=== PATIENT | female | born 1980 | race Caucasian/White ===

== ENCOUNTER 2021-04-07 12:13 | Inpatient (IN) | payer MEDICAID ==
[~2021-04-07] VITALS: Ht 157.5 cm; Wt 66.2 kg
[2021-04-07] MEDS ORDERED: MORPHINE SULFATE INJ 4 MG/ML DISP.SYRIN ONE (12:29)
[2021-04-07] MEDS ORDERED: ONDANSETRON HCL/PF 4 MG/2 ML VIAL ONE ×2 (12:29→13:11)
[2021-04-07] MEDS ORDERED: ONDANSETRON HCL/PF 4 MG/2 ML VIAL IVP ONE (12:30)
[2021-04-07] MEDS ORDERED: IV NS 0.9% 1,000 ML BAG IV ONE ×2 (12:30→13:30)
[2021-04-07] MEDS ORDERED: MORPHINE SULFATE INJ 2 MG/ML DISP.SYRIN IV ONE ×2 (12:30→14:00)
--- NOTE | 2021-04-07 12:48 | NUR ---
BIBS FROM HOME TO ER BED 6. AAOX4. NOT IN RESP DISTRESS. AMBULATORY. CAME IN FOR HEADACHE W/ NAUSEA AND VOMMITING. PER PT STARTED YESTERDAY HEADACHE PROGRESSIVELY GETTING WORSE, TOOK IBUPROPHEN 800 W/O RELIEF AND STARTED TO HAVE NAUSEA. NO NOTED NEURO DEFICIT. MD WAS AT THE BEDSIDE FOR EVAL. ORDERS RECEIVED, NOTED AND CARRIED OUT. IV LINE ESTABLISHED ON THE L WRIST WITH 20G, BLOOD BEING DRAWN BY PHLEB. EKG DONE AT BEDSIDE. PT ON MONITOR AND MEDICATED ORDERED.
[2021-04-07 12:55] LABS: EOSINOPHILS % (AUTO) 0.1 % (0.0-6.0); MEAN CORPUSCULAR HGB CONC 29 g/dl (31.0-36.0)
[2021-04-07 12:58] LABS: BASOPHILS # (AUTO) 0.1 K/uL (0.0-0.2); BASOPHILS % (AUTO) 0.7 % (0.0-2.0); HEMATOCRIT 46 % (33-45); HEMOGLOBIN 13.5 g/dL (11.5-14.8); LYMPHOCYTES # (AUTO) 0.7 K/uL (0.8-4.8); MEAN CORPUSCULAR VOLUME 63 fL (82-100); MONOCYTES # (AUTO) 0.7 K/uL (0.1-1.30); MONOCYTES % (AUTO) 3.8 % (2.0-12.0); NEUTROPHILS # (AUTO) 16.2 K/uL (1.8-8.9); NEUTROPHILS % (AUTO) 91.4 % (43.0-81.0); PLATELET COUNT (AUTO) 461 K/uL (150-450); RED BLOOD CELL COUNT(AUTO) 7.34 MIL/uL (4.0-5.2); WHITE BLOOD COUNT (AUTO) 17.7 K/uL (4.3-11.0)
[2021-04-07 13:09] LABS: ALANINE AMINOTRANSFERASE 54 U/L (12-78); ALBUMIN 4.5 g/dL (3.4-5.0); ALKALINE PHOSPHATASE 115 U/L (46-116); ASPARTATE AMINOTRANSFERASE 17 U/L (15-37); BILIRUBIN,DIRECT 0.1 mg/dL (0.0-0.2); BILIRUBIN,TOTAL 0.3 mg/dL (0.2-1.0); CALCIUM, SERUM 9.1 mg/dL (8.5-10.1); CHLORIDE 99 mmol/L (98-107); CREATININE 0.8 mg/dL (0.6-1.3); GLUCOSE 112 mg/dL (74-106); LIPASE 584 U/L (73-393); POTASSIUM 4.8 mmol/L (3.5-5.1); SODIUM SERUM 133 mmol/L (136-145); TOTAL PROTEIN, SERUM 9.2 g/dL (6.4-8.2); UREA NITROGEN, BLOOD 12 mg/dL (7-18)
[2021-04-07 13:12] LABS: CARBON DIOXIDE 7 mmol/L (21-32)
[2021-04-07] MEDS ORDERED: CIPR500T5 PO (13:29)
[2021-04-07] MEDS ORDERED: IBUP-1957 PO (13:29)
[2021-04-07] MEDS ORDERED: ERGO500093 PO (13:29)
[2021-04-07] MEDS ORDERED: VITA1TAB56 PO (13:30)
[2021-04-07] MEDS ORDERED: FERR325T23 PO (13:30)
[2021-04-07] MEDS ORDERED: ONDANSETRON HCL/PF 4 MG/2 ML VIAL IV ONE (13:30)
[2021-04-07] MEDS ORDERED: LACT1CAP71 PO (13:30)
--- NOTE | 2021-04-07 13:42 | NUR ---
BACK FROM CT
[2021-04-07 13:48] LABS: LYMPHOCYTES % (MANUAL) 5 % (16-48); MONOCYTES % (MANUAL) 1 % (0-11.0); NEUTROPHILS % (MANUAL) 94 (42-76)
[2021-04-07 13:55] LABS: ALCOHOL, BLOOD < 3 mg/dL (0-0)
[2021-04-07] MEDS ORDERED: MORPHINE SULFATE INJ 2 MG/ML DISP.SYRIN ONE (14:02)
--- NOTE | 2021-04-07 14:12 | NUR ---
PT STILL UNABLE TO URINATE AT THIS TIME.
--- NOTE | 2021-04-07 14:12 | NUR ---
COVID SWAB DONE AND SENT TO LAB.
[2021-04-07 15:37] LABS: BILIRUBIN,URINE SMALL (NEGATIVE); COLOR,URINE YELLOW (YELLOW); LEUKOCYTE ESTERASE ,URINE Negative (NEGATIVE); NITRITE, URINE Negative (NEGATIVE); PROTEIN,URINE >=300 mg/dl (NEGATIVE); UGLUCOSE Negative (NEGATIVE); UROBILINOGEN,URINE 0.2 EU/dL (0.2)
--- NOTE | 2021-04-07 15:42 | NUR ---
DR. HALL SPEAKING WITH DR. WRIGHT
[2021-04-07 15:48] LABS: BACTERIA,URINE Few /HPF (None Seen); RBC,URINE 51-80 /HPF (0-2); SQUAMOUS EPITHELIAL CELL,UR Few /HPF (None Seen)
--- NOTE | 2021-04-07 16:08 | NUR ---
TELEPHONE ORDERS RECEIVED FOR ADMISSION.
[2021-04-07] MEDS ORDERED: KETOROLAC TROMETHAMINE 15 MG/ML VIAL ONE (17:07)
[2021-04-07] MEDS ORDERED: KETOROLAC TROMETHAMINE INJ 30 MG/ML VIAL IV ONE (17:30)
--- NOTE | 2021-04-07 17:44 | NUR ---
REPORT GIVEN TO FRED HAIR FOR DOMI
--- NOTE | 2021-04-07 18:30 | NUR ---
SOLAR TECHNICIAN NOTES RECEIVED PATIENT FROM ED TO ROOM 309-1 @1806. ALERT AND ORIENTED X 4. NO SIGNS OR SYMTPOMS OF DISTRESS NOTED. NO SOB. ON ROOM AIR, TOLERATING WELL. VITAL SIGNS 113/60, HR 110, RR 18, TEMP 98 PUSLE OX 97%. BREATHING IS EVEN AND UNLABORED. WILL ENDORSE TO ONCOMING SHIFT.
--- NOTE | 2021-04-07 19:30 | NUR ---
MS FIELD CHECKER NOTE RECEIVED PT AWAKE IN BED. PT ADMITTED TO MED SURG FOR SEPSIS. A/O X4. PT STABLE ON ROOM AIR. NO SOB NOTED. NO S/S OF RESPIRATORY DISTRESS. PT IS AMBULATORY. GAIT IS STEADY. PT HAS NO C/O PAIN OR DISCOMFORT AT THIS TIME. IV ACCESS IN LEFT WRIST #20, INTACT AND PATENT. SKIN IS INTACT. SAFETY MEASURES MAINTAINED. BED IN LOWEST LOCKED POSITION, HOB ELEVATED, SIDE RAILS UP X2. CALL LIGHT AND TABLE WITHIN REACH. WILL CONTINUE WITH PLAN OF CARE.
[2021-04-07] MEDS: HYDROCODONE/APAP 5/325MG TABLET PO PRN (19:54)
--- NOTE | 2021-04-07 19:54 | NUR ---
FRED PAIN 314-1 @ 1953, 0041, PT C/O HEADACHE, RATE 7/10 ON 0-10 PAIN SCALE. PT NOTED WITH FACIAL GRIMACING, RESTLESSNESS, AND IRRITABILITY. VSS. PER PT REQUEST, ADMINISTERED NORCO 5-325 MG PO Q4H PRN FOR PAIN. WILL CONTINUE TO MONITOR. Addendum: 04/08/21 at 0416 by NANCY FRANKS RN RN PAIN (TIME: 1953) PT C/O HEADACHE, RATED 7/10 ON 0-10 PAIN SCALE. PT NOTED WITH FACIAL GRIMACING, RESTLESSNESS, AND IRRITABILITY. VSS. PER PT REQUEST, ADMINISTERED NORCO 5-325 MG PO Q4H PRN FOR PAIN. WILL CONTINUE TO MONITOR.
[2021-04-07 20:00] VITALS: BP 128/79
[2021-04-07] MEDS ORDERED: CEFTRIAXONE 2 G in IV D5W 100 ML IV SCH (20:00)
[2021-04-07] MEDS: ONDANSETRON HCL/PF 4 MG/2 ML VIAL IV PRN (20:12)
[2021-04-07] MEDS ORDERED: PIPERACILLIN /TAZOBACTAM 3.375 G in IV D5W 50 ML IV SCH (20:30)
[2021-04-07] MEDS ORDERED: ONDANSETRON HCL/PF 4 MG/2 ML VIAL IVP PRN (20:30)
[2021-04-07] MEDS ORDERED: ACETAMINOPHEN 325 MG TABLET PO PRN (20:30)
[2021-04-07] MEDS ORDERED: ZOLPIDEM TARTRATE 5 MG TABLET PO PRN (20:30)
[2021-04-07 20:49] LABS: MAGNESIUM 2.3 mg/dL (1.8-2.4)
[2021-04-08] MEDS: HYDROCODONE/APAP 5/325MG TABLET PO PRN ×2 (00:41→05:44)
--- NOTE | 2021-04-08 00:41 | NUR ---
RN PAIN PT C/O HEADACHE, RATED 10/10 ON 0-10 PAIN SCALE. PT NOTED WITH FACIAL GRIMACING, RESTLESSNESS, AND IRRITABILITY. VSS. PER PT REQUEST, ADMINISTERED NORCO 5-325 MG PO Q4H PRN FOR PAIN. WILL CONTINUE TO MONITOR.
[2021-04-08] MEDS: ONDANSETRON HCL/PF 4 MG/2 ML VIAL IV PRN ×4 (01:54→19:22)
[2021-04-08] MEDS ORDERED: PIPERACILLIN /TAZOBACTAM 3.375 G in IV D5W 100 ML IV SCH (02:00)
--- NOTE | 2021-04-08 07:00 | NUR ---
MS RN CLOSING NOTE PT IS AWAKE IN BED. A/O X4. PT STABLE ON ROOM AIR. NO SOB NOTED. NO S/S OF RESPIRATORY DISTRESS. PT HAS NO C/O PAIN OR DISCOMFORT AT THIS TIME. IV ACCESS IS INTACT, PATENT, AND FLUSHING WELL. ALL NEEDS HAVE BEEN MET. PAIN MANAGEMENT ADMINISTERED PER ORDER. SAFETY PRECAUTIONS MAINTAINED AT ALL TIMES. BED IN LOWEST LOCKED POSITION, HOB ELEVATED, SIDE RAILS UP X2. CALL LIGHT AND TABLE WITHIN REACH. WILL ENDORSE TO ONCOMING NURSE FOR DOMI.
[2021-04-08 07:06] LABS: BASOPHILS # (AUTO) 0.1 K/uL (0.0-0.2); BASOPHILS % (AUTO) 0.5 % (0.0-2.0); EOSINOPHILS % (AUTO) 0.9 % (0.0-6.0); HEMATOCRIT 40 % (33-45); HEMOGLOBIN 12.1 g/dL (11.5-14.8); LYMPHOCYTES # (AUTO) 1.3 K/uL (0.8-4.8); LYMPHOCYTES % (AUTO) 9.3 % (20.0-44.0); MEAN CORPUSCULAR HGB CONC 30 g/dl (31.0-36.0); MEAN CORPUSCULAR VOLUME 63 fL (82-100); MONOCYTES # (AUTO) 0.9 K/uL (0.1-1.30); MONOCYTES % (AUTO) 6.6 % (2.0-12.0); NEUTROPHILS # (AUTO) 11.6 K/uL (1.8-8.9); NEUTROPHILS % (AUTO) 82.7 % (43.0-81.0); PLATELET COUNT (AUTO) 386 K/uL (150-450); RED BLOOD CELL COUNT(AUTO) 6.42 MIL/uL (4.0-5.2)
--- NOTE | 2021-04-08 07:35 | NUR ---
ms rn received on bed, awake,alert,oriented x4,not in any form of distress, respirations even and unlabored,no sob noted, lungs are clear,abdomen soft,positive bowel sounds,denies pain at this time, will monitor patient.
[2021-04-08 08:00] VITALS: BP 129/69
[2021-04-08 08:13] LABS: ALBUMIN 3.8 g/dL (3.4-5.0); BILIRUBIN,TOTAL 0.4 mg/dL (0.2-1.0); CALCIUM, SERUM 8.7 mg/dL (8.5-10.1); CREATININE 0.6 mg/dL (0.6-1.3); POTASSIUM 4.2 mmol/L (3.5-5.1); TOTAL PROTEIN, SERUM 7.8 g/dL (6.4-8.2)
--- NOTE | 2021-04-08 08:50 | NUR ---
ms peguero breakfast served,due meds given, tolerated well.
[2021-04-08] MEDS ORDERED: HYDROMORPHONE MDV 1 MG in IV D5W 50 ML IV PRN (09:00)
[2021-04-08] MEDS ORDERED: POLYETHYLENE GLYCOL 3350 17 GM POWD.PACK PO PRN (09:00)
[2021-04-08] MEDS ORDERED: BISACODYL (5 MG) 5 MG TABLET.DR PO ONE (09:00)
[2021-04-08] MEDS: PANTOPRAZOLE 40 MG VIAL IV SCH (09:36)
[2021-04-08] MEDS: LACTOBACILLUS RHAMNOSUS GG 1 EACH CAP.SPRINK PO SCH (09:37)
[2021-04-08] MEDS: HYDROMORPHONE 1 MG/1 ML DISP.SYRIN IV PRN ×3 (09:47→19:23)
--- NOTE | 2021-04-08 09:50 | NUR ---
ms rn was seen by dr.shao galaviz/ orders made and carried out.
--- NOTE | 2021-04-08 14:00 | NUR ---
rn new iv site inserted at right hand g 24 only.
--- NOTE | 2021-04-08 15:50 | NUR ---
CTA BRAIN ORDERED ROUTINE. SPOKE WITH RN COOPER IN PREPARATION FOR EXAM WE WILL NEED IV ACCESS AND SIGNED CONSENT, PER RN PATIENT NEEDS MIDLINE. PLEASE CALL RADIOLOGY BACK WHEN READY EXT [phone].
[2021-04-08 16:00] VITALS: BP 129/73
--- NOTE | 2021-04-08 17:52 | NUR ---
ms rn on bed, no distress noted will continue to monitor
--- NOTE | 2021-04-08 19:30 | NUR ---
MS RN OPENING NOTES Patient is A&Ox4. C/o 9/10 pain to head immediately upon coming on shift. PRN dilaudid given but IV infiltration pt not able to receive full dose, will f/u with . States that her headache is more severe with light and nausea accompanies it. PRN Zofran given as well. Will monitor for effectiveness.
[2021-04-08 20:00] VITALS: BP 121/76
[2021-04-08] MEDS ORDERED: HYDROMORPHONE 1 MG/1 ML DISP.SYRIN IV ONE (21:00)
--- NOTE | 2021-04-08 21:09 | NUR ---
D/t infiltrated IV patient unable to receive full dose of IV dilaudid. Midline insertion shortly. New order for one time only 1/2 dose (0.5mg dialudid) due to patient still in severe pain to head.
[2021-04-09] MEDS: ONDANSETRON HCL/PF 4 MG/2 ML VIAL IV PRN ×5 (00:50→19:51)
[2021-04-09] MEDS: HYDROMORPHONE 1 MG/1 ML DISP.SYRIN IV PRN ×5 (00:50→19:51)
[2021-04-09] MEDS: IV NS 0.9% 1,000 ML IV PRN ×2 (04:57→19:59)
--- NOTE | 2021-04-09 05:57 | NUR ---
MS CLOSING NOTES Patient is A&Ox4. VSS. Pain to head and nausea responsive to PRN dilaudid and zofran, respectively. Patient reports that as long as medication is given within 10 minutes of symptom onset then it will not progress to emesis or 10/10 headache. Appreciative of timeliness. Consents signed for CTA of brain. IVF currently infusing to NICOLE midline -tolerating well. No signs of distress at this time.
[2021-04-09 06:34] LABS: BASOPHILS # (AUTO) 0.1 K/uL (0.0-0.2); BASOPHILS % (AUTO) 0.8 % (0.0-2.0); EOSINOPHILS % (AUTO) 1.7 % (0.0-6.0); HEMATOCRIT 39 % (33-45); HEMOGLOBIN 11.9 g/dL (11.5-14.8); LYMPHOCYTES # (AUTO) 1.9 K/uL (0.8-4.8); LYMPHOCYTES % (AUTO) 18.2 % (20.0-44.0); MEAN CORPUSCULAR HGB CONC 31 g/dl (31.0-36.0); MEAN CORPUSCULAR VOLUME 61 fL (82-100); MONOCYTES # (AUTO) 0.7 K/uL (0.1-1.30); MONOCYTES % (AUTO) 7.2 % (2.0-12.0); NEUTROPHILS # (AUTO) 7.4 K/uL (1.8-8.9); NEUTROPHILS % (AUTO) 72.1 % (43.0-81.0); PLATELET COUNT (AUTO) 390 K/uL (150-450); RED BLOOD CELL COUNT(AUTO) 6.33 MIL/uL (4.0-5.2); WHITE BLOOD COUNT (AUTO) 10.3 K/uL (4.3-11.0)
[2021-04-09 06:59] LABS: CALCIUM, SERUM 8.7 mg/dL (8.5-10.1); CREATININE 0.7 mg/dL (0.6-1.3); POTASSIUM 3.6 mmol/L (3.5-5.1)
--- NOTE | 2021-04-09 07:30 | NUR ---
PT RECEIVED RESTING COMFORTABLY IN BED. NO S/S OR C/O PAIN OR DISTRESS NOTED. SIDE RAILS UP X2, CALL LIGHT LEFT WITHIN REACH. WILL CONTINUE PLAN OF CARE.
[2021-04-09 08:00] VITALS: BP 129/71
[2021-04-09] MEDS: PANTOPRAZOLE 40 MG VIAL IV SCH (08:27)
[2021-04-09] MEDS: LACTOBACILLUS RHAMNOSUS GG 1 EACH CAP.SPRINK PO SCH (08:27)
[2021-04-09] MEDS ORDERED: BISACODYL (5 MG) 5 MG TABLET.DR PO ONE (11:30)
--- NOTE | 2021-04-09 11:35 | NUR ---
PT. ENDORSED TO ME BY FRED GONZALEZ.
--- NOTE | 2021-04-09 15:15 | NUR ---
GIVEN ZOFRAN AND DILAUDID FOR HEADACHE.
[2021-04-09 20:00] VITALS: BP 131/66
--- NOTE | 2021-04-09 20:00 | NUR ---
MS RN OPENING NOTES PATIENT RESTING IN BED, ALERT/ORIENTED X 4, PATIENT ABLE TO MAKE NEEDS KNOWN. PATIENT REPORTING 9/10 HEADACHE AND REQUESTING PAIN AND NAUSEA MEDICATION, DILAUDID 1 MG IV AND ZOFRAN 4 MG IV GIVEN ORDERED. PATIENT STABLE ON RA, NO S/S OF DISTRESS OR SHORTNESS OF BREATH NOTED. RIGHT UPPER ARM MIDLINE RUNNING NS @ 75 ML/HR. PATIENT IS AMBULATORY WITH BATHROOM PRIVILEGES. SAFETY MEASURES IN PLACE, CALL LIGHT AND TABLE WITHIN REACH, BED LOCKED IN LOWEST POSITION, SIDE RAILS UP X 2. WILL CONTINUE TO MONITOR
[2021-04-10] MEDS: HYDROMORPHONE 1 MG/1 ML DISP.SYRIN IV PRN ×3 (00:34→08:12)
[2021-04-10 06:36] LABS: BASOPHILS # (AUTO) 0.1 K/uL (0.0-0.2); BASOPHILS % (AUTO) 1.3 % (0.0-2.0); EOSINOPHILS % (AUTO) 2.1 % (0.0-6.0); HEMATOCRIT 32 % (33-45); HEMOGLOBIN 10.1 g/dL (11.5-14.8); LYMPHOCYTES # (AUTO) 1.6 K/uL (0.8-4.8); MEAN CORPUSCULAR HGB CONC 32 g/dl (31.0-36.0); MEAN CORPUSCULAR VOLUME 61 fL (82-100); MONOCYTES # (AUTO) 0.6 K/uL (0.1-1.30); MONOCYTES % (AUTO) 9.3 % (2.0-12.0); NEUTROPHILS # (AUTO) 4.1 K/uL (1.8-8.9); NEUTROPHILS % (AUTO) 63.3 % (43.0-81.0); PLATELET COUNT (AUTO) 313 K/uL (150-450); RED BLOOD CELL COUNT(AUTO) 5.24 MIL/uL (4.0-5.2); WHITE BLOOD COUNT (AUTO) 6.5 K/uL (4.3-11.0)
[2021-04-10 06:49] LABS: CREATININE 0.5 mg/dL (0.6-1.3)
--- NOTE | 2021-04-10 07:00 | NUR ---
MS RN CLOSING NOTES PATIENT SLEEPING IN BED, ALERT/ORIENTED X 4, PATIENT ABLE TO MAKE NEEDS KNOWN. PATIENT STABLE ON RA, NO S/S OF DISTRESS OR SHORTNESS OF BREATH NOTED. RIGHT UPPER ARM MIDLINE RUNNING NS @ 75 ML/HR. MEDICATIONS GIVEN ORDERED, PT NEEDS MET. SAFETY MEASURES IN PLACE, CALL LIGHT AND TABLE WITHIN REACH, BED LOCKED IN LOWEST POSITION, SIDE RAILS UP X 2. WILL ENDORSE TO DAY SHIFT NURSE FOR CONTINUITY OF CARE
--- NOTE | 2021-04-10 07:47 | NUR ---
MS RN OPENING NOTES RECEIVED PATIENT IN BED AWAKE, ALERT AND ORIENTED X 4. NO SIGNS OR SYMPTOMS OF DISTRESS NOTED. BREATHING IS EVEN AND UNLABORED. NO SOB. IV ACCESS NICOLE MIDLINE RUNNING NS @75MLS/HR. PATIENT IS COMPLAINING OF PAIN 05/20. WILL ADMINISTER PAIN MEDICATION NEEDED AND ORDERED. SAFETY MEASURES IN PLACE WITH BED LOCKED AT LOWEST POSITION, SIDE RAILS UP X2. CALL LIGHT AND TABLE ARE WITHIN REACH. WILL CONTINUE TO MONITOR THROUGHOUT SHIFT.
[2021-04-10] MEDS: ONDANSETRON HCL/PF 4 MG/2 ML VIAL IV PRN (08:11)
[2021-04-10] MEDS: PANTOPRAZOLE 40 MG VIAL IV SCH (08:12)
[2021-04-10] MEDS: LACTOBACILLUS RHAMNOSUS GG 1 EACH CAP.SPRINK PO SCH (08:12)
[2021-04-10 08:50] LABS: EOSINOPHILS % (MANUAL) 2 % (0-4); LYMPHOCYTES % (MANUAL) 27 % (16-48); MONOCYTES % (MANUAL) 8 % (0-11.0); NEUTROPHILS % (MANUAL) 63 (42-76)
[2021-04-10] MEDS ORDERED: POTASSIUM CHLORIDE 20 MEQ TAB.PRT.SR PO ONE (09:00)
[2021-04-10] MEDS ORDERED: ONDA4TAB5 PO (09:05)
[2021-04-10] MEDS ORDERED: HYDR-3972 PO (09:05)
[2021-04-10] MEDS ORDERED: BISA-79 PO (09:07)
[2021-04-10] MEDS ORDERED: BISACODYL (5 MG) 5 MG TABLET.DR PO ONE (09:30)
[2021-04-10] MEDS ORDERED: LACTULOSE 10 G/15 ML UDC (PYXIS) PO PRN (09:30)
--- NOTE | 2021-04-10 11:40 | NUR ---
MS ADOLESCENT PSYCHIATRIST NOTES RECEIVED DISCHARGE ORDER FOR PATIENT, ALERT AND ORIENTED X4. NO SIGNS OR SYMPTOMS OF DISTRESS NOTED. NO SOB. NO COMPLAINTS OF PAIN AT THIS TIME. BREATHING IS EVEN AND UNLABORED. DISCHARGE SUMMARY REVIEWED, SIGNED BY PATIENT, COPY FILED IN CHART. ALL BELONGINGS ACCOUNTED FOR AND RETURNED WITH SIGNED LIST. PATIENT WAS PICKED UP BY MILES. IV ACCESS AND ID BAND REMOVED. ESCORTED PATIENT VIA WHEELCHAIR OFF THE UNIT @1130. OBSERVED PATIENT GET INTO PRIVATE CAR.
[2021-04-11] MEDS ORDERED: PANTOPRAZOLE 40 MG TABLET.DR PO SCH (07:30)
== END 2021-04-10 11:30 | disposition home or self-care (01) | DRG 54 ==
LOC: ER 12:52 → TELE 17:53 → MED 20:33
PROVIDERS: ADMIT Internal Medicine; ATTEND Internal Medicine
PROC: 05H933Z Insertion of Infusion Device into Right Brachial Vein, Percutaneous Approach (ICD-10-PCS; principal; 2021-04-08)
DX: G44.009 Cluster headache syndrome, unspecified, not intractable (principal); K85.90 Acute pancreatitis without necrosis or infection, unspecified; E87.2 Acidosis; E87.1 Hypo-osmolality and hyponatremia; E86.0 Dehydration; Z90.49 Acquired absence of other specified parts of digestive tract; Z98.84 Bariatric surgery status; K59.00 Constipation, unspecified; K21.9 Gastro-esophageal reflux disease without esophagitis; Z20.822 Contact with and (suspected) exposure to COVID-19; Z79.899 Other long term (current) drug therapy; Z83.3 Family history of diabetes mellitus; F17.200 Nicotine dependence, unspecified, uncomplicated
CPT/HCPCS: 36415; 70450-TC; 70496-TC; 76770-TC; 80048-TC; 80053-TC; 80076-TC; 81001; 82150-TC; 83605-TC; 83690-TC; 83735-TC; 84484-TC; 84703-TC; 85025-TC; 87081-TC; C9113; C9803; G0378; G0480; J0696; J1170; J1885; J2270; J2405; J2543; J7030; J7060

== ENCOUNTER 2025-04-19 | Emergency (ER) | payer MEDICAID ==
[~2025-04-19] VITALS: Ht 162.6 cm; Wt 68.0 kg
[~2025-04-19] MED LIST: BISA-79 PO; ERGO500093 PO; FERR325T23 PO; HYDR-3972 PO; LACT1CAP71 PO; ONDA4TAB5 PO; VITA1TAB56 PO
[2025-04-19] MEDS ORDERED: TDAP [DIPH/PERTUSSIS/TET] 0.5 ML VIAL IM ONE (00:37)
[2025-04-19] MEDS: IV NS 0.9% 1,000 ML IV ONE (00:49)
[2025-04-19] MEDS ORDERED: LIDOCAINE /MPF 1% VIAL 5 ML VIAL ONE (00:56)
[2025-04-19] MEDS: TDAP [DIPH/PERTUSSIS/TET] 0.5 ML VIAL IM ONE (01:01)
[2025-04-19 01:05] LABS: CALCIUM, SERUM 9.0 mg/dL (8.5-10.1); CREATININE 0.6 mg/dL (0.6-1.3); SODIUM SERUM 135.0 mmol/L (136-145); UREA NITROGEN, BLOOD 13.0 mg/dL (7-18)
[2025-04-19 01:07] LABS: PLATELET COUNT (AUTO) 308 K/uL (150-450); RED BLOOD CELL COUNT(AUTO) 6.78 MIL/uL (4.0-5.2); RED CELL DISTRIBUTION WIDTH 19.4 % (11.5-15.0); WHITE BLOOD COUNT (AUTO) 17.4 K/uL (4.3-11.0)
[2025-04-19 01:20] LABS: ALCOHOL, BLOOD 233.0 mg/dL (0-10); ASPARTATE AMINOTRANSFERASE 38.0 U/L (15-37); NT-PRO BNP 68.0 pg/mL (0-125); TOTAL PROTEIN, SERUM 8.2 g/dL (6.4-8.2)
[2025-04-19 03:45] LABS: AMPHETAMINE, URINE NEGATIVE (NEGATIVE); APPEARANCE,URINE CLEAR (CLEAR); BARBITURATE, URINE NEGATIVE (NEGATIVE); BENZODIAZEPINE, URINE NEGATIVE (NEGATIVE); BLOOD, URINE 3+ Ery/uL (NEGATIVE); CANNABINOID, URINE NEGATIVE (NEGATIVE); COCCAINE, URINE NEGATIVE (NEGATIVE); LEUKOCYTE ESTERASE ,URINE NEGATIVE (NEGATIVE); NITRITE, URINE NEGATIVE (NEGATIVE); OPIATE, URINE NEGATIVE (NEGATIVE); UGLUCOSE NEGATIVE (NEGATIVE)
[2025-04-19 04:03] LABS: ADD URINE CULTURE NO; SQUAMOUS EPITHELIAL CELL,UR Rare /HPF (None Seen)
[2025-04-19] MEDS ORDERED: POTASSIUM CHLORIDE 20 MEQ TAB.PRT.SR PO ONE (04:07)
[2025-04-19] MEDS: POTASSIUM CHLORIDE 20 MEQ TAB.PRT.SR PO ONE (04:12)
[2025-04-19] MEDS ORDERED: KETOROLAC TROMETHAMINE INJ 30 MG/ML VIAL ONE (05:51)
[2025-04-19] MEDS: KETOROLAC TROMETHAMINE INJ 30 MG/ML VIAL IV ONE (06:07)
[2025-04-19] MEDS: LIDOCAINE /MPF 1% VIAL 5 ML VIAL IJ ONE ×2 (07:00→07:30)
[2025-04-19] MEDS ORDERED: ONDANSETRON HCL/PF 4 MG/2 ML VIAL ONE (07:49)
[2025-04-19] MEDS ORDERED: MORPHINE SULFATE INJ 2 MG/ML DISP.SYRIN ONE (07:50)
[2025-04-19] MEDS: ONDANSETRON HCL/PF 4 MG/2 ML VIAL IV ONE (08:00)
[2025-04-19] MEDS: MORPHINE SULFATE INJ 4 MG/ML DISP.SYRIN IV ONE (08:00)
[2025-04-19 09:59] VITALS: BP 119/68; TEMP 98.5; O2SAT 98
== END 2025-04-19 10:00 | disposition home or self-care (01) ==
LOC: ER 00:08
DX: S01.01XA Laceration without foreign body of scalp, initial encounter (principal); F10.129 Alcohol abuse with intoxication, unspecified; R51.9 Headache, unspecified; Z60.2 Problems related to living alone; Z79.899 Other long term (current) drug therapy; Z98.84 Bariatric surgery status; W18.30XA Fall on same level, unspecified, initial encounter; Y93.89 Activity, other specified; Y92.89 Other specified places as the place of occurrence of the external cause; Y99.8 Other external cause status; Y90.7 Blood alcohol level of 200-239 mg/100 ml
CPT/HCPCS: 12002; 99285; 96374; 90471; 96361; 96375; 93005; 90715; 71045; 73502; 73030; 70450; 85025; 81001; 36415; 80053; 84484; 83880; 80320; 80307; J1885; J2405; J7030; J3490; J2270; G0480